=== PATIENT | male | born 2000 | race Caucasian/White ===

== ENCOUNTER 2023-03-10 09:49 | Emergency (ER) | payer OTHER ==
[2023-03-10] MEDS ORDERED: PROPARACAINE 0.5% OPHTH DROPS 15 ML RIGHTEYE STA (10:24)
[2023-03-10] MEDS ORDERED: ERYTHROMYCIN OPHTH OINT 1 GM TUBE RIGHTEYE STA (11:11)
[2023-03-10] MEDS ORDERED: cephALEXin 250 MG CAPSULE PO STA (11:11)
--- NOTE | 2023-03-10 11:13 | ED Physician Documentation ---
PD HPI OPHTHO - Stated complaint Stated Complaint: RIGHT EYE SWOLLEN - Chief complaint Chief Complaint: Heent - History obtained from History obtained from: Patient (3 days of increasing pain and swelling of the right lower eyelid. No visual deficit.) PD PAST MEDICAL HISTORY - Present Medications Home Medications: Ambulatory Orders Medication Instructions Recorded Confirmed Erythromycin Base [Erythromycin 1 appful OP 5XD 7 Days #1 gm 03/10/23 Ophthalmic Ointment] cephALEXin [Keflex] 500 mg PO Q6H #28 cap 03/10/23 - Allergies Allergies/Adverse Reactions: Allergies Allergy/AdvReac Type Severity Reaction Status Date / Time No Known Drug Allergies Allergy Verified 03/10/23 10:15 PD ED PE NORMAL - Vitals Vital signs reviewed: Yes - General General: Alert and oriented X 3, No acute distress - HEENT HEENT: PERRL, EOMI, Other (There is a an infected internal hordeolum of the medial right eyelid lower.) - Neuro Neuro: Alert and oriented X 3, Normal speech Results - Vitals Vitals: Vital Signs - 24 hr 03/10/23 10:12 Temperature 36.6 C Heart Rate 87 Respiratory 16 Rate Blood Pressure 143/75 H O2 Saturation 100 Oxygen O2 Source Room air Departure - Departure Disposition: 01 Home, Self Care Clinical Impression: Internal hordeolum of right eye Condition: Good Record reviewed to determine appropriate education?: Yes Instructions: ED [facility] Follow-Up: Bull Lerma MD [Provider Admit Priv/Credential] - Within 3 Days Prescriptions: Erythromycin Base [Erythromycin Ophthalmic Ointment] 1 appful OP 5XD 7 Days #1 gm cephALEXin [Keflex] 500 mg PO Q6H #28 cap Comments: Return if worse, call The eye doctor tomorrow for follow-up within the next few days.
[2023-03-10 11:44] VITALS: BP 144/93
== END 2023-03-10 11:44 | disposition home or self-care (01) ==
LOC: ED 09:49
DX: H00.022 Hordeolum internum right lower eyelid (principal)
CPT/HCPCS: 99282; 99283; A9270; J3490